=== PATIENT | female | born 1945 | race Two or more races ===

== ENCOUNTER 2018-04-09 14:18 | Outpatient (CLI) | payer OTHER ==
[~2018-04-09 14:18] MED LIST: CIPRO500 MG PO; CLONAZEPAM1 MG; HYZAAR 100-12.1 EACH; HYZAAR 100-121 UDTAB; HYZAAR 100-251 UDTAB; LANTUS SOL100 UNIT/1; LEVSIN/SL0.125 MG SL; PLAVIX75 MG; PRILOSEC40 MG PO; SYNTHROID88 MCG; TRILIPIX135 MG; URIN D.S. TABLE1 TAB PO; ZOCOR5 MG
== END 2018-04-09 14:26 | disposition home or self-care (01) ==
LOC: NUCLEAR 14:18
DX: C73 Malignant neoplasm of thyroid gland (principal)
CPT/HCPCS: 78018; 78020; A9528

== ENCOUNTER 2024-01-25 15:30 | Outpatient (CLI) | payer OTHER | END 2024-01-25 15:37 | disposition home or self-care (01) | LOC: SONOGRAMA 15:30 | PROVIDERS: ATTEND Internal Medicine Sports Medicine | DX: C73 Malignant neoplasm of thyroid gland (principal) ==

== ENCOUNTER 2024-04-20 11:57 | Outpatient (CLI) | payer OTHER | END 2024-04-20 12:00 | disposition home or self-care (01) | LOC: MRI 11:57 | DX: M17.11 Unilateral primary osteoarthritis, right knee (principal) | CPT/HCPCS: 73721 ==

== ENCOUNTER 2024-05-27 10:13 | Outpatient (CLI) | payer OTHER | END 2024-05-27 10:14 | disposition home or self-care (01) | LOC: NUCLEAR 10:13 | PROVIDERS: ATTEND Emergency Medicine | DX: M81.0 Age-related osteoporosis without current pathological fracture (principal) ==

== ENCOUNTER 2025-02-05 18:25 | Emergency (ER) | payer OTHER ==
[~2025-02-05] VITALS: Ht 160 cm; Wt 51.7 kg
[2025-02-05] MEDS ORDERED: ONDANSETRON HCL 2 MG/ML VIAL IV STA (19:23)
[2025-02-05] MEDS ORDERED: FAMOTIDINE/PF 20 MG/2 ML VIAL IV STA ×2 (19:23→19:27)
[2025-02-05] MEDS ORDERED: MORPHINE SULFATE 4 MG/ML CARTRIDGE IV STA (19:25)
[2025-02-05] MEDS ORDERED: 0.9 % SODIUM CHLORIDE 1,000 ML IV STA (19:26)
[2025-02-05 20:18] LABS: BASO % 0.9 % (0.1-1.2); EOS # 0.06 (0.04-0.54); EOS % 1.3 % (0.7-7.0); LYMPH # 1.70 (1.18-3.74); LYMPH % 36.5 % (19.3-53.1); MEAN PLATELET VOLUME 9.70 fl (9.4-12.4); MONO # 0.36 (0.24-0.82); MONO % 7.7 % (4.7-12.5); NEUT # 2.48 (1.56-6.13); NEUT % 53.2 % (34.0-71.1); RED CELL DISTRIBUTION WIDTH 12.4 % (11.6-14.4)
[2025-02-05 20:53] LABS: URINE APPEARANCE Clear; URINE BILIRRUBIN Negative (NEGATIVE); URINE BLOOD Negative; URINE COLOR Yellow; URINE GLUCOSE Negative (NEGATIVE); URINE KETONE Trace (NEGATIVE); URINE LEUKOCYTE Small; URINE NITRATE Negative; URINE PROTEIN Trace (NEGATIVE); URINE UROBILINOGEN 0.2 E.U./dl
[2025-02-05 20:56] LABS: URINE BACTERIA 68.3 uL (0.0-1933); URINE CAST 3.66 uL (0.0-1.40); URINE EPITHELIAL CELLS 10.1 uL (0.0-38.8); URINE RBC 2.3 uL (0.0-20.8); URINE WBC 44.4 uL (0.0-23.2)
[2025-02-05 21:07] LABS: ALT/SGPT 16.0 U/L (12-78); AST/SGOT 18.0 U/L (15-37); BILIRUBIN TOTAL 0.8 mg/dL (0.3-1.2); BUN CREA RATIO 19.0 (7.0-25.0); CREATININE SERUM 1.15 mg/dL (0.55-1.02); GFR 45.63; GLOBULINA 3.1 G/DL (2.4-3.5); GLUCOSE FASTING 85.0 mg/dL (65-100); OSMOLALITY SERUM 280.0 MOSM/KG (275-295)
== END 2025-02-06 00:15 | disposition home or self-care (01) ==
LOC: ER 18:31
PROVIDERS: General Practice
DX: R10.13 Epigastric pain (principal); R14.3 Flatulence; R14.1 Gas pain; R14.2 Eructation; Z91.011 Allergy to milk products
CPT/HCPCS: 36415; 74177; 96365; 96366; 99284; J2270; J2405; J3490; J7030; Q9965

== ENCOUNTER 2025-02-07 13:44 | Outpatient (CLI) | payer OTHER | END 2025-02-07 13:50 | disposition home or self-care (01) | LOC: SONOGRAMA 13:44 | PROVIDERS: ATTEND Internal Medicine Endocrinology, Diabetes & Metabolism | DX: E89.0 Postprocedural hypothyroidism (principal); C73 Malignant neoplasm of thyroid gland ==

== ENCOUNTER 2025-05-02 15:46 | Emergency (ER) | payer OTHER ==
[~2025-05-02] VITALS: Ht 160 cm; Wt 50.8 kg
[2025-05-02 16:54] VITALS: BP 174/71; O2SAT 98
[2025-05-02] MEDS ORDERED: MORPHINE SULFATE 4 MG/ML CARTRIDGE IV STA (18:11)
[2025-05-02] MEDS ORDERED: FAMOTIDINE/PF 20 MG/2 ML VIAL IV STA (18:11)
[2025-05-02] MEDS ORDERED: 0.9 % SODIUM CHLORIDE 1,000 ML IV STA (18:11)
[2025-05-02] MEDS ORDERED: ONDANSETRON HCL 2 MG/ML VIAL IV STA (18:11)
[2025-05-02] MEDS ORDERED: FAMOTIDINE/PF 20 MG/2 ML VIAL ONE (18:38)
[2025-05-02] MEDS ORDERED: ONDANSETRON HCL 2 MG/ML VIAL ONE (18:38)
[2025-05-02 19:13] LABS: BASO % 0.4 % (0.1-1.2); EOS # 0.05 (0.04-0.54); EOS % 1.0 % (0.7-7.0); LYMPH # 1.43 (1.18-3.74); LYMPH % 29.7 % (19.3-53.1); MEAN PLATELET VOLUME 9.50 fl (9.4-12.4); MONO # 0.33 (0.24-0.82); MONO % 6.8 % (4.7-12.5); NEUT # 2.98 (1.56-6.13); NEUT % 61.9 % (34.0-71.1); RED CELL DISTRIBUTION WIDTH 12.6 % (11.6-14.4)
[2025-05-02 19:29] LABS: ERYTHROCYTE SEDIMENTATION RATE 11 mm/hr (0-30)
[2025-05-02 19:42] LABS: INR 0.98
[2025-05-02 20:10] LABS: ALT/SGPT 20 U/L (12-78); AST/SGOT 18 U/L (15-37); BILIRUBIN TOTAL 0.62 mg/dL (0.3-1.2); BUN CREA RATIO 17 (7.0-25.0); CREATININE SERUM 1.16 mg/dL (0.55-1.02); GFR 45.06; GLOBULINA 4.0 G/DL (2.4-3.5); GLUCOSE FASTING 88 mg/dL (65-100); OSMOLALITY SERUM 283 MOSM/KG (275-295)
[2025-05-02 22:17] LABS: URINE APPEARANCE Clear; URINE BILIRRUBIN Negative (NEGATIVE); URINE BLOOD Negative; URINE COLOR Yellow; URINE GLUCOSE Negative (NEGATIVE); URINE KETONE Negative (NEGATIVE); URINE LEUKOCYTE Moderate; URINE NITRATE Negative; URINE PROTEIN Negative (NEGATIVE); URINE UROBILINOGEN 0.2 E.U./dl
[2025-05-02 22:22] LABS: URINE BACTERIA 108.0 uL (0.0-1933); URINE EPITHELIAL CELLS 8.6 uL (0.0-38.8); URINE RBC 52.2 uL (0.0-20.8); URINE WBC 34.3 uL (0.0-23.2)
[2025-05-02 22:39] LABS: URINE CAST 0.43 uL (0.0-1.40)
[2025-05-02] MEDS ORDERED: CEFTRIAXONE SODIUM 1,000 MG VIAL IM STA (23:21)
[2025-05-02] MEDS ORDERED: CEFTRIAXONE SODIUM 1,000 MG VIAL ONE (23:51)
[2025-05-02] MEDS ORDERED: PEPCID AC20 MG PO (23:54)
[2025-05-02] MEDS ORDERED: PRILOSEC OTC20 MG PO (23:54)
[2025-05-02] MEDS ORDERED: CIPRO500 MG PO (23:54)
== END 2025-05-03 02:13 | disposition home or self-care (01) ==
LOC: ER 15:46
PROVIDERS: Physician Assistant Medical
DX: N39.0 Urinary tract infection, site not specified (principal); N18.9 Chronic kidney disease, unspecified; R10.9 Unspecified abdominal pain; K29.70 Gastritis, unspecified, without bleeding; E11.9 Type 2 diabetes mellitus without complications; Z79.4 Long term (current) use of insulin; Z91.0110 Allergy to milk products, unspecified; Z91.018 Allergy to other foods
CPT/HCPCS: 36415; 74177; 93005; 96365; 96366; 99284; J0696; J2270; J2405; J3490; J7030; Q9965